=== PATIENT | female | born 2000 ===

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

== ENCOUNTER 2018-05-06 14:55 | Emergency (ER) | payer BC ==
[2018-05-06 15:34] VITALS: BP 114/63
--- NOTE | 2018-05-06 15:59 | UC ---
Complaint Female HPI - HPI Summary HPI Summary: Patient presents for possible UTI. She describes it as frequent urgent urination with some burning and bladder pressure. She denies any fever or chills. She denies any abdominal pain and any risk concern for pelvic infection. Symptoms began last evening. - History Of Current Complaint Stated Complaint: URINARY Time Seen by Provider: 05/06/18 15:29 Hx Obtained From: Patient Hx Last Menstrual Period: "last month" Onset/Duration: Gradual Onset Timing: Constant Aggravating Factor(s): Nothing Alleviating Factor(s): Nothing Associated Signs And Symptoms: Negative: Vaginal Discharge - Allergies/Home Medications Allergies/Adverse Reactions: Allergies Allergy/AdvReac Type Severity Reaction Status Date / Time prochlorperazine Allergy Anxiety Verified 05/06/18 15:31 [From Compazine] PMH/Surg Hx/FS Hx/Imm Hx - Additional Past Medical History Additional PMH: Mitral valve disease with artificial valve. Other History Of: Anticoagulant Therapy - Warfarin Negative For: HIV, Hepatitis B, Hepatitis C - Surgical History Surgical History: Yes Surgery Procedure, Year, and Place: open heart surgery x3. 2 mitral valve reconstructions/1 mitral valve replacement ([facility] Valve 04/2013) - Family History Known Family History: Negative: Cardiac Disease, Hypertension - Social History Occupation: Employed Full-time Alcohol Use: None Substance Use Type: None Smoking Status (MU): Never Smoked Tobacco - Immunization History Most Recent Influenza Vaccination: Not the 2016/2017 Season Vaccination Up to Date: Yes Review of Systems Constitutional: Negative Skin: Negative Eyes: Negative ENT: Negative Respiratory: Negative Cardiovascular: Negative Gastrointestinal: Negative Genitourinary: Dysuria, Frequency, Urgency Motor: Negative Neurovascular: Negative Musculoskeletal: Negative Neurological: Negative Psychological: Negative Is Patient Immunocompromised?: No All Other Systems Reviewed And Are Negative: Yes Physical Exam Triage Information Reviewed: Yes Appearance: Well-Appearing Vital Signs Reviewed: Yes Eyes: Positive: Conjunctiva Clear ENT: Positive: Normal ENT inspection Neck: Positive: Supple, Nontender, No Lymphadenopathy Respiratory: Positive: Lungs clear, Normal breath sounds Cardiovascular: Positive: RRR, No Murmur Abdomen Description: Positive: Nontender, No Organomegaly, Soft. Negative: CVA Tenderness (R), CVA Tenderness (L) Bowel Sounds: Positive: Present Musculoskeletal: Positive: ROM Intact Neurological: Positive: Alert Psychological: Positive: Age Appropriate Behavior Skin Exam: Normal Diagnostics - Laboratory Diagnostic Studies Completed/Ordered: u/a= blood and leukocytes with culture pending Complaint Female Dx - Course Course Of Treatment: non toxic, no acute abdomen - Differential Dx/Diagnosis Provider Diagnoses: uti Discharge - Sign-Out/Discharge Documenting (check all that apply): Discharge/Admit/Transfer - Discharge Plan Condition: Stable Disposition: HOME Prescriptions: Nitrofurantoin Macrocrystals* [Macrodantin 100 mg*] 100 mg PO BID 5 Days #10 cap Patient Education Materials: Urinary Tract Infection in Women (ED) Referrals: J Carlos Arias MD [Primary Care Provider] - 7 Days - Billing Disposition and Condition Condition: STABLE Disposition: Home
== END 2018-05-06 16:05 | disposition home or self-care (01) ==
LOC: UCCORT 14:55
DX: N39.0 Urinary tract infection, site not specified (principal); B96.20 Unspecified Escherichia coli [E. coli] as the cause of diseases classified elsewhere; Z88.8 Allergy status to other drugs, medicaments and biological substances; Z79.01 Long term (current) use of anticoagulants; Z95.2 Presence of prosthetic heart valve
CPT/HCPCS: 81003; 87077; 87086; 87186; 99212; G0463